=== PATIENT | female | born 1965 | race Caucasian/White ===

== ENCOUNTER 2018-07-18 06:17 | Emergency (ER) | payer BC ==
[~2018-07-18] VITALS: Ht 165.1 cm; Wt 46.4 kg
[2018-07-18 06:37] VITALS: BP 146/82
== END 2018-07-18 06:50 | disposition home or self-care (01) ==
LOC: ER 06:19
DX: R20.2 Paresthesia of skin (principal); R10.9 Unspecified abdominal pain; R53.1 Weakness; F17.200 Nicotine dependence, unspecified, uncomplicated; Z86.73 Personal history of transient ischemic attack (TIA), and cerebral infarction without residual deficits
CPT/HCPCS: 99281